=== PATIENT | female | born 1995 | race Caucasian/White ===

== ENCOUNTER 2024-07-09 10:33 | Emergency (ER) | payer OTHER ==
[2024-07-09 11:11] LABS: BASOPHILS ABSOLUTE AUTO 0.04 K/uL (0.00-0.10); BASOPHILS PERCENT AUTO 0.6 % (0.1-1.3); EOSINOPHILS ABSOLUTE AUTO 0.27 K/uL (0.00-0.40); EOSINOPHILS PERCENT AUTO 3.7 % (0.0-5.4); HEMOGLOBIN 12.5 g/dL (11.2-15.5); IMMATURE GRAN ABSOLUTE AUTO 0.02 K/uL (0.00-0.23); IMMATURE GRAN PERCENT AUTO 0.3 % (0.0-0.7); LYMPHOCYTES ABSOLUTE AUTO 1.69 K/uL (0.8-3.3); LYMPHOCYTES PERCENT AUTO 23.2 % (11.4-47.7); MEAN CORPUSCULAR HEMOGLOBIN 31.6 pg (31.6-35.5); MEAN CORPUSCULAR HGB CONC 34.7 g/dL (31.6-35.5); MEAN CORPUSCULAR VOLUME 90.9 fL (81.4-99.0); MONOCYTES ABSOLUTE AUTO 0.52 K/uL (0.20-0.90); MONOCYTES PERCENT AUTO 7.2 % (3.3-12.6); NEUTROPHILS ABSOLUTE AUTO 4.73 K/uL (1.0-7.6); PLATELET COUNT,PLT 221 K/uL (130-375); RED BLOOD CELL COUNT 3.96 M/uL (3.77-5.24); WHITE BLOOD CELL COUNT,WBC 7.3 K/uL (3.2-11.0)
[2024-07-09 11:26] LABS: CALCIUM 8.9 mg/dL (8.5-10.1); CREATININE 0.9 mg/dL (0.6-1.0); EST CRCL DRUG DOSING (CG) 80.07 mL/min
[2024-07-09] MEDS: Lidocaine 1% with EPINEPHrine 1:100,000 20 ML MDV INJECT ONE (11:28)
[2024-07-09 11:36] LABS: LACTIC ACID 0.8 mmol/L (0.4-2.0)
== END 2024-07-09 12:38 | disposition home or self-care (01) ==
LOC: JP.ED 10:33
DX: N61.1 Abscess of the breast and nipple (principal); Z91.012 Allergy to eggs; Z79.899 Other long term (current) drug therapy
CPT/HCPCS: 36415; 80048; 83605; 85025; 87070; 87075; 87077; 87205; 99283